=== PATIENT | male | born 1985 ===

== ENCOUNTER 2017-01-01 09:37 | Day surgery (SDC) | payer BC ==
[~2017-01-01 09:37] MED LIST: Lactated Ringers 1,000 ML IV SCH; Lidocaine 1%/Sod Bicarbonate in NS 8.4% 1 ML Syringe IV PRN; Sodium Chloride 0.9% 10 ML Syringe FLUSH PRN
[2017-01-01] MEDS ORDERED: Lidocaine 1% with EPINEPHrine 1:100,000 20 ML MDV ONE (09:56)
[2017-01-01] MEDS ORDERED: Bupivacaine 0.5%/EPINEPHrine 1:200,000 50 ML MDV ONE (09:56)
[2017-01-01] MEDS ORDERED: Alfentanil 500 MCG/ML 2ML Amp ONE (10:17)
--- NOTE | 2017-01-01 10:19 | PCM.PREANE ---
Preanesthetic Assessment - Procedure Proposed Procedure: Excisional biopsy mucinous cyst lower lip - Anesthesia/Transfusion/Family Hx Anesthesia History: Prior Anesthesia Without Reaction Family History of Anesthesia Reaction: No - Review of Systems General: No Symptoms Pulmonary: No Symptoms Cardiovascular: No Symptoms Gastrointestinal: No symptoms Neurological: No Symptoms Other: Reports: None - Physical Assessment NPO Status Date: 12/31/16 NPO Status Time: 17:00 O2 Sat by Pulse Oximetry: 96 Respiratory Rate: 16 Vital Signs: Last Vital Signs Temp 36.4 C 01/01/17 09:45 Pulse 79 01/01/17 09:45 Resp 16 01/01/17 09:45 BP 131/85 01/01/17 09:45 Pulse Ox 96 01/01/17 09:45 Height: 1.8 m Weight: 115.212 kg ASA Class: 2 Mental Status: Alert & Oriented x3 Airway Class: Mallampati = 2 Dentition: Reports: Normal Dentition Thyro-Mental Finger Breadths: 3 Mouth Opening Finger Breadths: 3 ROM/Head Extension: Full Lungs: Clear to auscultation, Normal respiratory effort Cardiovascular: Regular Rate, Regular Rhythm, No Murmurs - Allergies Allergies/Adverse Reactions: Allergies Allergy/AdvReac Type Severity Reaction Status Date / Time No Known Allergies Allergy Verified 12/31/16 13:50 - Acknowledgements Anesthesia Type Planned: MAC Pt an Appropriate Candidate for the Planned Anesthesia: Yes Alternatives and Risks of Anesthesia Discussed w Pt/Guardian: Yes Pt/Guardian Understands and Agrees with Anesthesia Plan: Yes PreAnesthesia Questionnaire HEENT History: Reports: None Cardiovascular History: Reports: None Respiratory History: Reports: None Genitourinary History: Reports: None ASSOCIATE DENTIST History: Reports: None Musculoskeletal History: Reports: None Neurological History: Reports: None Psychiatric History: Reports: None Endocrine/Metabolic History: Reports: None, Obesity/BMI 30+ Hematologic History: Reports: None Immunologic History: Reports: None Oncologic (Cancer) History: Reports: None Dermatologic History: Reports: Other (see below) Other Dermatologic History: cyst of lower lip - Past Surgical History Head Surgeries/Procedures: Reports: None GI Surgical History: Reports: Appendectomy - SUBSTANCE USE Smoking Status *Q: Former Smoker (Quit x 4 yrs after 5 yr hx of 1/4 pack per week) Tobacco Use Within Last Twelve Months: No Second Hand Smoke Exposure: No Days Per Week of Alcohol Use: 1 Number of Drinks Per Day: 2 Total Drinks Per Week: 2 Recreational Drug Use History: No - HOME MEDS Home Medications: Home Meds Cephalexin 500 mg PO BID 12/31/16 [History] Multivitamin [Daily Multiple Vitamin] 1 tab PO DAILY 12/31/16 [History] - CURRENT (IN HOUSE) MEDS Current Meds: Current Medications Lactated Ringer's (Ringers, Lactated) 1,000 mls @ 125 mls/hr IV ASDIRECTED MARISA Stop: 01/01/17 23:00 Last Admin: 01/01/17 10:00 Dose: 125 mls/hr Lidocaine/Sodium Bicarbonate (Buffered Lidocaine 1% In Ns 8.4%) 0.25 ml IV ONETIME PRN PRN Reason: Prior to IV Start Stop: 01/01/17 18:00 Last Admin: 01/01/17 10:00 Dose: 0.25 ml Sodium Chloride (Saline Flush) 10 ml FLUSH ASDIRECTED PRN PRN Reason: Keep Vein Open Stop: 01/01/17 18:00 Discontinued Medications Bupivacaine HCl/Epinephrine Bitart (Marcaine 0.5%/Epinephrine 1:200,000) Confirm Administered Dose 50 ml .ROUTE .STK-MED ONE Stop: 01/01/17 09:57 Lidocaine/Epinephrine (Xylocaine 1% With Epinephrine 1:100,000) Confirm Administered Dose 20 ml .ROUTE .STK-MED ONE Stop: 01/01/17 09:57 Preanesthetic Assessment - PHYSICAL ASSESSMENT O2 Sat by Pulse Oximetry: 96 RR: 16 Vital Signs: Last Vital Signs Temp 36.4 C 01/01/17 09:45 Pulse 79 01/01/17 09:45 Resp 16 01/01/17 09:45 BP 131/85 01/01/17 09:45 Pulse Ox 96 01/01/17 09:45 Height: 1.8 m Weight: 115.212 kg NPO Status Date: 12/31/16 NPO Status Time: 17:00 - ALLERGIES Allergies/Adverse Reactions: Allergies Allergy/AdvReac Type Severity Reaction Status Date / Time No Known Allergies Allergy Verified 12/31/16 13:50
[2017-01-01] MEDS ORDERED: Midazolam 1 MG/ML 2 ML SDV ONE (10:26)
[2017-01-01] MEDS ORDERED: Propofol 200 MG/20 ML SDV ONE (10:26)
[2017-01-01] MEDS ORDERED: Bacitracin Oint 15 GM Tube ONE (10:39)
--- NOTE | 2017-01-01 10:58 | PCM.OPNOTE ---
- General Post-Op/Procedure Note Date of Surgery/Procedure: 01/01/17 Operative Procedure(s): excision of mucocele lower lip Findings: 1.5 cm mucocele lower lip Pre Op Diagnosis: mucocele lower lip Post-Op Diagnosis: same Anesthesia Technique: Local, MAC, Moderate sedation Primary Surgeon: Bi Gracia Pathology: 1.5 cm, mucocele EBL in mLs: 1 Complications: None Condition: Good Free Text/Narrative:: After adequate IV sedation and analgesia was obtained the patient's lip was prepped with Betadine and I draped the field sterilely with towels. 1 cc of 1% lidocaine with epinephrine was infused into the subcutaneous tissues and mucosa of the inner lip. A 1 cm incision was made with a 15 blade centered over the mucocele. I used iris scissors to raise the lip mucosa superiorly and inferiorly the mucocele from the surrounding soft tissues. I entered the mucocele and some mucus came out. I removed the specimen and sent it to pathology. I closed the excision site with 4 interrupted 5-0 Vicryl sutures. There were no complications.
[2017-01-01 11:09] VITALS: BP 122/70
--- NOTE | 2017-01-01 11:17 | PCM48HPAN ---
Post Anesthesia Note - EVALUATION WITHIN 48HRS OF ANESTHETIC Vital Signs in Normal Range: Yes Patient Participated in Evaluation: Yes Respiratory Function Stable: Yes Airway Patent: Yes Cardiovascular Function Stable: Yes Hydration Status Stable: Yes Pain Control Satisfactory: Yes Nausea and Vomiting Control Satisfactory: Yes Mental Status Recovered: Yes
== END 2017-01-01 11:20 | disposition home or self-care (01) ==
LOC: JD.SDS 09:37
PROVIDERS: ATTEND Surgery
DX: K13.0 Diseases of lips (principal); Z79.899 Other long term (current) drug therapy; Z90.49 Acquired absence of other specified parts of digestive tract; Z87.898 Personal history of other specified conditions; Z87.891 Personal history of nicotine dependence; Z72.0 Tobacco use
CPT/HCPCS: 40810; 88304; A9270; J2250; J7120; 00170; J2704